=== PATIENT | female | born 1995 | race Hispanic/Latino ===

== ENCOUNTER 2017-05-20 21:18 | Emergency (ER) | payer OTHER ==
[2017-05-20 22:05] LABS: #Monocytes 0.4 thou/uL (0.11-0.59); #Neutrophils 5.6 thou/uL (1.40-6.50); %Basophils 0.3 % (0.0-1.0); %Eosinophils 0.4 % (0.0-10.0); %Monocytes 4.8 % (0.0-4.0); Hematocrit 37.7 % (36.0-47.0); Mean Platelet Volume 8.8 fL (7.4-10.4); Red Blood Cell (RBC) Count 4.28 mill/uL (4.00-5.20)
[2017-05-20 23:11] LABS: Bilirubin Negative (Negative); Blood, Urine Negative (Negative); Glucose, Urine (Dipstick) Negative (Negative); Ketone, Urine Negative (Negative); Nitrite Negative (Negative); Protein, Urine (Dipstick) Negative (Neg-Trace); Urobilinogen 0.2 mg/dL (0.2-1.0)
[2017-05-20 23:25] LABS: RBC/HPF 0-3 HPF (0-3); Squamous Epithelial 0-3 HPF (0-3); WBC/HPF 0-3 HPF (0-3)
[2017-05-20 23:26] LABS: Bacteria/HPF Rare-Few HPF (None Seen)
[2017-05-20 23:27] LABS: Hyaline Casts/LPF NONE SEEN LPF (0-3 Hyaline)
== END 2017-05-21 00:10 | disposition home or self-care (01) ==
LOC: ERS 21:18
DX: O20.0 Threatened abortion (principal); O23.41 Unspecified infection of urinary tract in pregnancy, first trimester; O10.012 Pre-existing essential hypertension complicating pregnancy, second trimester; I10 Essential (primary) hypertension; O99.341 Other mental disorders complicating pregnancy, first trimester; F41.9 Anxiety disorder, unspecified; F31.9 Bipolar disorder, unspecified; Z3A.01 Less than 8 weeks gestation of pregnancy
CPT/HCPCS: 36415; 81003; 81015; 84702; 85025; 99284

== ENCOUNTER 2018-06-24 19:23 | Emergency (ER) | payer MEDICAID, SELFPAY | END 2018-06-24 19:45 | disposition home or self-care (01) | LOC: SCSER 19:23 | DX: H72.92 Unspecified perforation of tympanic membrane, left ear (principal); H66.92 Otitis media, unspecified, left ear; F41.9 Anxiety disorder, unspecified; F31.9 Bipolar disorder, unspecified | CPT/HCPCS: 99282 ==

== ENCOUNTER 2019-01-10 19:52 | Emergency (ER) | payer SELFPAY ==
[2019-01-10 21:25] LABS: Bilirubin Small (Negative); Blood, Urine Trace (Negative); Glucose, Urine (Dipstick) Negative (Negative); Leukocyte Trace (Negative); Nitrite Negative (Negative); Protein, Urine (Dipstick) 100 mg/dL (Neg-Trace); Urobilinogen 0.2 mg/dL (Less than 2)
[2019-01-10 21:26] LABS: Clarity Hazy (Clear)
[2019-01-10 21:27] LABS: Pregnancy Test - Urine (BHCG) Negative (Negative); Pregu Control Background? CLEAR/WHITE (CLR/WHITE); Pregu Control Bar Appear? YES (CONTROL BAR); Specific Gravity 1.028 (1.002-1.036)
[2019-01-10 21:28] LABS: Bacteria/HPF None Seen HPF (None Seen); RBC/HPF 0-3 HPF (0-3)
== END 2019-01-10 23:04 | disposition home or self-care (01) ==
LOC: ERS 19:52
DX: N93.9 Abnormal uterine and vaginal bleeding, unspecified (principal); F41.9 Anxiety disorder, unspecified; F31.9 Bipolar disorder, unspecified
CPT/HCPCS: 81003; 81015; 81025; 99284

== ENCOUNTER 2019-11-24 18:19 | Emergency (ER) | payer MEDICAID, OTHER, SELFPAY | END 2019-11-24 19:51 | disposition home or self-care (01) | LOC: ERS 18:19 | DX: O9A.211 Injury, poisoning and certain other consequences of external causes complicating pregnancy, first trimester (principal); S39.91XA Unspecified injury of abdomen, initial encounter; O16.1 Unspecified maternal hypertension, first trimester; O24.419 Gestational diabetes mellitus in pregnancy, unspecified control; O99.341 Other mental disorders complicating pregnancy, first trimester; F41.9 Anxiety disorder, unspecified; F31.9 Bipolar disorder, unspecified; Z3A.11 11 weeks gestation of pregnancy; Y04.0XXA Assault by unarmed brawl or fight, initial encounter | CPT/HCPCS: 99283 ==

== ENCOUNTER 2020-02-03 08:36 | Outpatient (CLI) | payer OTHER ==
--- NOTE | 2020-02-03 11:41 | ULT ---
COMPLETE OBSTETRICAL ULTRASOUND: INDICATION: Evaluate anatomy. FINDINGS: There is a single live intrauterine gestation in breech presentation. Placenta is fundal and posteri or in location with evidence of a small intraplacental hill. The hill measured approximately 1.5 cm. SHAYY measures 15.97 cm. The left cervical length was 3.6 cm. The head, heart, stomach, kidneys, cord insertion, bladder, spine, lips and noses, extremities, and 3-vessel cord appear within normal limits. The biparietal diameter measures 5.1 cm giving an estimated gestational age of 21 weeks and 4 days. The head circumference measured 18.9 cm giving an estimated gestational age of 21 weeks and 2 days. Abdominal circumference was 16.63 cm giving an estimated gestational age of 21 weeks and 5 days. The femoral length was 3.44 cm giving an estimated gestational age of 20 weeks and 6 days. The average gestational age by ultrasound is 21 weeks and 3 days with an estimated due date of 020. The gestational age by menstrual period was 21 weeks and 5 days with an estimated due date of 08/11/2019. The estimated weight is 412 gm +/- 60 gm (15 ounces +/- 2 ounces) (24th percentile). IMPRESSION: 1. Single live intruaterine gestation with size and dates as above. 2. survey appeared within normal limits. 3. Small placental hill. POS: BH
== END 2020-02-03 08:37 | disposition home or self-care (01) ==
LOC: BICULT 08:36
PROVIDERS: ATTEND Family Medicine
DX: O09.892 Supervision of other high risk pregnancies, second trimester (principal); O36.5120 Maternal care for known or suspected placental insufficiency, second trimester, not applicable or unspecified; Z3A.21 21 weeks gestation of pregnancy
CPT/HCPCS: 76805

== ENCOUNTER 2020-04-10 13:57 | Day surgery (SDC) | payer OTHER ==
[2020-04-10 14:56] VITALS: BP 109/66; TEMP 98.2; BMI 32.1
--- NOTE | 2020-04-10 15:23 | PDOC.LDHP ---
Labor and Delivery H&P Chief complaint: contractions (back pain) HPI: 24 y/o at 31w2d, patient of Dr. Sweeney, presents with back pain. Patient reports she felt like she was having ctx but those have resolved. Now she only complaints of intermittent back pain. Pain is crampy, comes and goes, rates it 7/10, improved for a short time with Tylenol, last dose this morning. Denies VB, LOF, or other concerns. +FM ROS neg for HEENT, CV, pulm, GI, , neuro, psych, skin, musculoskeletal, or constitutional symptoms other than mentioned above. OB History Details: 2 prior term , preeclampsia with first Current complications: none Past Medical History: None Current medications: pre- vitamins, other (ASA 81mg) Previous surgical history: cholecystectomy Allergies/Adverse Reactions: Allergies Allergy/AdvReac Type Severity Reaction Status Date / Time No Known Allergies Allergy Verified 04/10/20 15:09 Social history: none - Physical Exam Vital signs reviewed and normal: yes General: NAD, resting Lungs: nonlabored breathing Abdomen: gravid Extremeties: no edema FHT: category 1 (135, mod variability, + accels, no decels) [place] contractions every: None - Vaginal Exam cm dilated: 0 Effacement: 0% Station: -3 - Assessment 24 y/o at 31w2d with musculoskeletal discomforts of . No e/o PTL. No ctx on monitoring, SVE 0/0/-3. status reassuring with reactive NST. - Plan -: D/c home with precautions. Advised to keep all appointments. Comfort measures discussed.
[2020-04-11] MEDS ORDERED: FLU VACC QS2020-21(6MOS UP)/PF 60 MCG/0.5 ML SYRINGE IM ONE (09:00)
== END 2020-04-10 15:55 | disposition home health service (06) ==
LOC: L&D/OP 13:57
PROVIDERS: ATTEND Family Medicine
DX: O26.893 Other specified pregnancy related conditions, third trimester (principal); M54.9 Dorsalgia, unspecified; O47.03 False labor before 37 completed weeks of gestation, third trimester; Z3A.31 31 weeks gestation of pregnancy; Z79.82 Long term (current) use of aspirin

== ENCOUNTER 2020-05-05 10:28 | Day surgery (SDC) | payer OTHER ==
[2020-05-05 11:09] VITALS: BMI 32.3
--- NOTE | 2020-05-05 11:31 | PDOC.LDHP ---
Labor and Delivery H&P Chief complaint: other (vaginal bleeding/spotting) HPI: 24 yo presents complaining of vaginal bleeding. Pt states she feels like she lost her mucus plug early yesterday morning. After this she went to the bathroom and upon wiping noticed pink on the tissue. She put on a pad and from yesterday morning through this morning has noticed a few additional episodes of very light spotting. Denies any change in her vaginal discharge, any vaginal burning/irritation, dysuria, abodminal pain, LOF, recent illness. +FM. Denies any recent intercourse. Pt states she has had contractions intermittently over the last week but never noticed them lasting more than an hour. Current gestational age (weeks): 34 (6) Due date: 06/10/20 Dating criteria: first trimester ultrasound Grav: 3 Para: 2 OB History Details: 2 previous . Pre-eclampsia and gestational DM in first with induction at 37 wks. Current complications: other (anemia of ) Abnormal US findings: No Past Medical History: None Current medications: pre- vitamins, iron Previous surgical history: cholecystectomy Allergies/Adverse Reactions: Allergies Allergy/AdvReac Type Severity Reaction Status Date / Time No Known Allergies Allergy Verified 05/05/20 11:10 Social history: none - Physical Exam Vital signs reviewed and normal: yes General: NAD, resting Heart: RRR Lungs: nonlabored breathing Abdomen: NTTP Extremeties: no edema FHT: category 1, variability present [place] contractions every: 1 in 30 minutes - Vaginal Exam cm dilated: 0 Effacement: 0% Station: -3 - OB Labs Blood type: A RH: positive Antibody Screen: negative HIV: negative RPR: negative HEPSAg: negative 1 hour GCT: negative (119) Rubella: immune - Assessment 3rd Trimester IUP w/ vaginal spotting - Plan -: -Speculum exam without any signs of bleeding -SVE: closed/thick/high -[place] showing 1 cxn over course of 30 minutes that was non-painful -Reactive, Cat 1 strip Plan: No signs of infection or pre-term labor. Reassuring status on monitor. Pt has follow up with Dr. Sweeney next week. Will DC with precautions and routine f/u in a few days.
[2020-05-05] MEDS ORDERED: hydrALAZINE 20 MG/ML VIAL SLOW IVP PRN (11:32)
== END 2020-05-05 12:02 | disposition home health service (06) ==
LOC: L&D/OP 10:28
PROVIDERS: ATTEND Family Medicine
DX: O46.93 Antepartum hemorrhage, unspecified, third trimester (principal); O99.013 Anemia complicating pregnancy, third trimester; D64.9 Anemia, unspecified; Z3A.34 34 weeks gestation of pregnancy

== ENCOUNTER 2020-05-27 08:46 | Day surgery (SDC) | payer OTHER ==
[2020-05-27] MEDS ORDERED: hydrALAZINE 20 MG/ML VIAL SLOW IVP PRN (09:28)
--- NOTE | 2020-05-27 09:29 | PDOC.LDHP ---
Labor and Delivery H&P Chief complaint: loss of fluid HPI: 24yo @ 38.0wk by 12.2wk fely presents for loss of fluid. States had intercourse last night, awoke this morning and was getting ready to go for a walk when she noticed her underwear was wet, changed clothes and no LOF since. She called the clinic who recommended her be seen in L&D. She endorses good movement, no VB, change in VD, dysuria, fever/chills, CP, SOB. No Ctx. Has an induction scheduled for 06/04. Current gestational age (weeks): 38 Due date: 06/10/20 Dating criteria: first trimester ultrasound Grav: 3 Para: 2 OB History Details: PIH and gDM in first Current complications: none Past Medical History: denies Current medications: pre- vitamins, iron, other (ASA) Previous surgical history: cholecystectomy Allergies/Adverse Reactions: Allergies Allergy/AdvReac Type Severity Reaction Status Date / Time No Known Allergies Allergy Verified 05/05/20 11:10 Social history: none - Physical Exam Vital signs reviewed and normal: yes General: NAD, resting Heart: RRR Lungs: CTAB Abdomen: gravid Extremeties: no edema FHT: category 1 (accels, no deccels, moderate variability) [place] contractions every: none - Vaginal Exam cm dilated: 0 Effacement: 0% Station: -3 - OB Labs Blood type: A RH: positive Antibody Screen: negative HIV: negative RPR: negative HEPSAg: negative Rubella: immune Additional Labs: GC/C negative - Plan -: 24yo @ 38.0wk by 12.2wk fely presents for loss of fluid. #Term SIUP, r/o labor and SROM - Concern for SROM @ approx 8am this AM, no LOF since - Spec exam with no pooling of fluid or LOF with valsalva - Amnisure negative - SVE 0/th/high - Cat 1 FHT with no ctx PCP: Patel Castanedao: Negative for SROM. Not in labor. Discussed findings with patient and safe for discharge home. Given return labor precautions. Patient voiced understanding and agreement, all questions answered. Patient has induction schd for 06/04. Above plan discussed with Dr. Mercado who agreed with plan and documentation. Addendum - Attending - Attending Attestation Date/Time: 05/28/20 1780 I personally evaluated the patient and discussed the management with Dr. Gupta I agree with the History, Examination, Assessment and Plan documented above with any addition or exceptions noted below.
[2020-05-27 09:33] VITALS: BMI 35.9
[2020-05-27 09:46] LABS: Amnisure Test No Membranes Rupture (No Rupture)
[2020-05-27 09:47] LABS: Amnisure Internal Control QC ACCEPTABLE (ACCEPTABLE)
[2020-05-28] MEDS ORDERED: FLU VACC QS2020-21(6MOS UP)/PF 60 MCG/0.5 ML SYRINGE IM ONE (09:00)
== END 2020-05-27 10:12 | disposition home or self-care (01) ==
LOC: L&D/OP 08:46
PROVIDERS: ATTEND Family Medicine
DX: O99.891 Other specified diseases and conditions complicating pregnancy (principal); N89.8 Other specified noninflammatory disorders of vagina; Z3A.38 38 weeks gestation of pregnancy
CPT/HCPCS: 84112; 99283

== ENCOUNTER 2020-05-30 10:08 | Outpatient (CLI) | payer OTHER ==
[2020-05-30 22:14] LABS: SARS-CoV-2 MS2 Positive; SARS-CoV-2 N Gene Negative; SARS-CoV-2 S Gene Negative; SARS-CoV-2 by NAA Not Detected (NotDetected); SARS-CoV-2 orf1ab Negative
== END 2020-05-30 10:09 | disposition home or self-care (01) ==
LOC: LABBT 10:08
PROVIDERS: ATTEND Family Medicine
DX: Z01.812 Encounter for preprocedural laboratory examination (principal); Z20.828 Contact with and (suspected) exposure to other viral communicable diseases
CPT/HCPCS: 87635; U0003

== ENCOUNTER 2020-06-04 19:15 | Inpatient (IN) | payer OTHER ==
[~2020-06-04 19:15] MED LIST: Carboprost 250 MCG/ML AMP IM PRN; Diphenoxylate HCl/Atropine Tablet PO PRN; HYDROcodone/Acetaminophen 5/325 mg Tablet PO PRN; Ibuprofen 800 MG TAB PO PRN; Lidocaine 1% (PF) 30 ML VIAL SC PRN; Methylergonovine 0.2 MG/ML VIAL IM PRN; Misoprostol 200 MCG TAB PR PRN; NS / Oxytocin 40 units/1000ml 1,000 ML IV PRN; NS w/ Oxytocin 10 units 500 ML IV SCH; Ondansetron PF 4 MG/2 ML Vial IVP PRN; Penicillin G Potassium 5 MILL.UNITS in Sodium Chloride 0.9% 100 ML IVPB SCH; Promethazine HCl 25 MG/ML VIAL IM PRN; hydrALAZINE 20 MG/ML VIAL SLOW IVP PRN
[2020-06-04] MEDS: Lactated Ringer's 1,000 ML IV SCH (19:50)
[2020-06-04 20:06] VITALS: BMI 36.8
[2020-06-04 20:10] LABS: Hemoglobin 12.3 g/dL (12.0-16.0); Mean Corpuscular HGB CONC 34.5 g/dL (32.0-36.0); Mean Corpuscular Hemoglobin 30.4 pg (27.0-31.0); Mean Corpuscular Volume 88.1 fL (78.0-98.0); Mean Platelet Volume 10.6 fL (7.4-10.4); Platelet Count 182 thou/uL (130-400); RBC Distribution Width 13.4 % (11.5-14.5); Red Blood Cell (RBC) Count 4.05 mill/uL (4.20-5.40); White Blood Cell (WBC) Count 10.3 thou/uL (4.8-10.8)
[2020-06-04] MEDS: Misoprostol 100 MCG TAB VAG SCH (20:15)
[2020-06-04 20:44] LABS: Syphilis Antibody Nonreactive (Nonreactive); Syphilis Antibody Index 0.04 S/CO (<1.00 Non-Reactive)
[2020-06-04] MEDS: Penicillin G 2.5 MILL.units 2.5 MILL.UNITS in Premix Bag 1 BAG IVPB SCH (20:48)
[2020-06-04 22:20] LABS: HBSAg Index 0.14 S/CO (0-0.99); Hep B Surf Ag Non-Reactive S/CO (NonReactive)
[2020-06-05] MEDS: Penicillin G 2.5 MILL.units 2.5 MILL.UNITS in Premix Bag 1 BAG IVPB SCH ×2 (00:01→05:42)
[2020-06-05] MEDS: Butorphanol Tartrate 1 MG/ML VIAL SLOW IVP PRN ×2 (00:15→02:15)
[2020-06-05] MEDS: Misoprostol 100 MCG TAB VAG SCH ×2 (00:17→05:42)
[2020-06-05] MEDS ORDERED: DISCONTINUE ALL PREVIOUS NARCOTICS FS SCH (02:30)
[2020-06-05] MEDS ORDERED: Bupivacaine 0.5% 20 ML, fentaNYL Citrate/PF 400 MCG in Sodium Chloride 0.9% 72 ML EPIDURAL SCH (02:30)
--- NOTE | 2020-06-05 03:18 | DN ---
DATE OF PROCEDURE: 06/05/2020 PRIMARY OB: Dr. Tenzin Sweeney. The patient delivered a male at 39 weeks and 2 days on 06/05/2020 at 0238 hours by an uncomplicated term spontaneous vaginal delivery. Apgars were 8 and 9. Weight unavailable at time of dictation. Placenta delivered spontaneously, followed by Pitocin infusion. There were no lacerations. Quantitative blood loss 215 mL. Delivering physician is Dr. Mercado. COUNTS: Correct. COMPLICATIONS: None. Mother and baby are stable in the room in the immediate period. Job ID: [id number]
[2020-06-05] MEDS: Lactated Ringer's 1,000 ML IV SCH (03:29)
[2020-06-05] MEDS ORDERED: NS / Oxytocin 40 units/1000ml 1,000 ML IV SCH (05:04)
[2020-06-05] MEDS ORDERED: Benzocaine-Menthol 82.5 ML CAN TOP PRN (05:04)
[2020-06-05] MEDS ORDERED: Milk Of Magnesia 30 ML UDCUP PO PRN (05:04)
[2020-06-05] MEDS ORDERED: Bisacodyl 10 MG SUPP PR PRN (05:04)
[2020-06-05] MEDS ORDERED: Lanolin Ointment 7 GM TUBE TOP PRN (05:04)
[2020-06-05] MEDS ORDERED: hydrALAZINE 20 MG/ML VIAL SLOW IVP PRN (05:04)
[2020-06-05] MEDS ORDERED: Ondansetron PF 4 MG/2 ML Vial IVP PRN (05:04)
[2020-06-05] MEDS: Ibuprofen 800 MG TAB PO SCH ×3 (05:20→22:18)
[2020-06-05] MEDS: Ferrous Sulfate 325 MG TAB PO SCH ×2 (08:54→17:10)
[2020-06-05] MEDS ORDERED: Adacel (T-DAP) 0.5 ML SYRINGE IM ONE (09:00)
[2020-06-05] MEDS: Docusate Calcium (SURFAK) 240 MG CAP PO SCH ×2 (09:29→22:18)
[2020-06-05] MEDS: Prenatal Vitamin 1 TAB PO SCH (09:29)
[2020-06-05] MEDS: HYDROcodone/Acetaminophen 5/325 mg Tablet PO PRN ×2 (11:31→16:38)
[2020-06-06] MEDS: Ibuprofen 800 MG TAB PO SCH ×3 (07:16→13:22)
[2020-06-06 07:27] LABS: #Eosinphils 0.1 thou/uL (0.0-0.7); #Lymphocytes 2.5 thou/uL (1.20-3.40); #Monocytes 0.5 thou/uL (0.11-0.59); %Basophils 0.1 % (0.0-1.0); %Eosinophils 0.6 % (0.0-10.0); %Lymphocytes 27.5 % (21.0-51.0); %Monocytes 5.9 % (0.0-10.0); Hemoglobin 11.3 g/dL (12.0-16.0); Mean Corpuscular HGB CONC 33.9 g/dL (32.0-36.0); Mean Corpuscular Hemoglobin 30.6 pg (27.0-31.0); Mean Corpuscular Volume 90.4 fL (78.0-98.0); Platelet Count 130 thou/uL (130-400); RBC Distribution Width 13.3 % (11.5-14.5); Red Blood Cell (RBC) Count 3.68 mill/uL (4.20-5.40); White Blood Cell (WBC) Count 9.1 thou/uL (4.8-10.8)
[2020-06-06] MEDS: Ferrous Sulfate 325 MG TAB PO SCH ×2 (07:54→16:47)
[2020-06-06] MEDS: Prenatal Vitamin 1 TAB PO SCH (08:00)
[2020-06-06] MEDS: Docusate Calcium (SURFAK) 240 MG CAP PO SCH (08:00)
[2020-06-06 08:10] VITALS: BP 116/80; TEMP 98.5
[2020-06-06] MEDS: HYDROcodone/Acetaminophen 5/325 mg Tablet PO PRN (14:13)
== END 2020-06-06 18:40 | disposition home or self-care (01) | DRG 807 ==
LOC: L&D 19:15 → 3SW 06-05 05:29
PROVIDERS: ADMIT Family Medicine; ATTEND Family Medicine
PROC: 10E0XZZ Delivery of Products of Conception, External Approach (ICD-10-PCS; principal; 2020-06-05)
DX: O62.3 Precipitate labor (principal); Z37.0 Single live birth; Z3A.39 39 weeks gestation of pregnancy; Z20.828 Contact with and (suspected) exposure to other viral communicable diseases
CPT/HCPCS: 36415; 85025; 85027; 86780; 86850; 86900; 86901; 87340; J0595; J2405; J3010; J3490

== ENCOUNTER 2021-11-27 12:47 | Emergency (ER) | payer OTHER ==
[2021-11-27] MEDS ORDERED: Dexameth. Sod Phosp. 10 MG/ML (CHEMO USE ONLY) ONE (13:15)
[2021-11-27] MEDS ORDERED: Ketorolac Tromethamine 30 MG/ML VIAL ONE (13:15)
== END 2021-11-27 13:40 | disposition home or self-care (01) ==
LOC: ERS 12:47
DX: J03.80 Acute tonsillitis due to other specified organisms (principal); B96.89 Other specified bacterial agents as the cause of diseases classified elsewhere
CPT/HCPCS: 96372; 99283; J1100; J1885

== ENCOUNTER 2022-02-25 07:43 | Outpatient (CLI) | payer OTHER | END 2022-02-25 07:44 | disposition home or self-care (01) | LOC: BICULT 07:43 | PROVIDERS: ATTEND Nurse Practitioner Women's Health | DX: T83.32XA Displacement of intrauterine contraceptive device, initial encounter (principal) | CPT/HCPCS: 76856 ==

== ENCOUNTER 2022-06-30 23:04 | Emergency (ER) | payer OTHER ==
[2022-07-01] MEDS ORDERED: Acetaminophen 500 MG TAB ONE (00:04)
[2022-07-01 00:06] LABS: SARS-CoV-2 NAA Rapid Test Not Detected (NotDetected)
[2022-07-01] MEDS ORDERED: Dexamethasone 4 MG TAB ONE (01:28)
== END 2022-07-01 01:49 | disposition home or self-care (01) ==
LOC: ERS 23:04
DX: J02.9 Acute pharyngitis, unspecified (principal); J06.9 Acute upper respiratory infection, unspecified; Z20.822 Contact with and (suspected) exposure to COVID-19
CPT/HCPCS: 71045; 87081; 87430; J8540

== ENCOUNTER 2022-09-15 17:58 | Emergency (ER) | payer OTHER ==
[2022-09-15] MEDS ORDERED: Metoclopramide HCl 10 MG TAB ONE (18:24)
[2022-09-15 18:46] LABS: Bilirubin Negative (Negative); Blood, Urine Negative (Negative); Clarity Clear (Clear); Glucose, Urine (Dipstick) Normal (Negative); Ketone, Urine Negative (Negative); Leukocyte Negative Leu/uL (Negative); Nitrite Negative (Negative); Protein, Urine (Dipstick) Negative (Neg-Trace); Specific Gravity, Urine 1.008 (1.002-1.036); Urobilinogen Normal mg/dL (Less than 2); pH, Urine 6.5 (5.0-9.0)
== END 2022-09-15 19:50 | disposition home or self-care (01) ==
LOC: ERS 17:58
DX: R51.9 Headache, unspecified (principal)
CPT/HCPCS: 81003; 99284

== ENCOUNTER 2023-06-15 10:55 | Emergency (ER) | payer OTHER, SELFPAY ==
[2023-06-15 14:41] LABS: SARS-CoV-2 NAA Rapid Test Not Detected (NotDetected)
[2023-06-15 15:26] LABS: MONO NEGATIVE CONTROL ZONE White (Negative) (White); MONO POSITIVE CONTROL Pink Line (Positive) (PINK/RED); Mononucleosis NEGATIVE (NEGATIVE)
== END 2023-06-15 15:02 | disposition home or self-care (01) ==
LOC: ERS 10:55
DX: J02.9 Acute pharyngitis, unspecified (principal); I10 Essential (primary) hypertension; Z20.822 Contact with and (suspected) exposure to COVID-19
CPT/HCPCS: 36415; 86308; 87081; 87430; 99283

== ENCOUNTER 2024-05-12 19:08 | Emergency (ER) | payer SELFPAY ==
[2024-05-12] MEDS ORDERED: Acetaminophen 325 MG TAB ONE (20:05)
== END 2024-05-12 20:12 | disposition home or self-care (01) ==
LOC: ERS 19:08
DX: B34.9 Viral infection, unspecified (principal)
CPT/HCPCS: 87081; 87428; 87430; 99283

== ENCOUNTER 2024-05-13 08:04 | Emergency (ER) | payer OTHER, SELFPAY ==
[2024-05-13 08:29] LABS: Actual Bicarbonate (HCO3v) 22.4 mEq/L (22-28); Analyzer IN Cardio ER; Base Excess 1.9 mEq/L (-2.0 to +3.0); Calcium, Ionized (venous) 1.09 mmol/L (1.16-1.32); Chloride (VBG) 101 mmol/L (98-106); Hematocrit-VBG 43 % (36.0-47.0); Hemoglobin (Hb) 14.7 g/dL (11.7-15.5); Potassium (VBG) 3.52 mmol/L (3.70-5.30); Sodium 137 mmol/L (133-146); pH (venous) 7.565 (7.32-7.43)
[2024-05-13 08:36] LABS: #Basophils Less than 0.03 10x3/uL (0.0-0.2); #Eosinophils Less than 0.03 10x3/uL (0.0-0.7); %Basophils 0.1 % (0.0-1.0); %Lymphocytes 6.8 % (21.0-51.0); %Monocytes 5.1 % (0.0-10.0); %Neutrophils 87.6 % (42.0-75.0); Hematocrit 40.4 % (36.0-47.0); Hemoglobin 14.4 g/dL (12.0-16.0); Mean Corpuscular HGB CONC 35.6 g/dL (32.0-36.0); Mean Corpuscular Hemoglobin 29.8 pg (27.0-31.0); Mean Corpuscular Volume 83.6 fL (78.0-98.0); Mean Platelet Volume 10.8 fL (7.4-10.4); Platelet Count 228 10x3/uL (130-400); RBC Distribution Width 13.1 % (11.5-14.5); Red Blood Cell (RBC) Count 4.83 mill/uL (4.20-5.40)
[2024-05-13] MEDS ORDERED: hydrOXYzine 25 MG TAB ONE (08:56)
[2024-05-13] MEDS ORDERED: Ketorolac Tromethamine 30 MG (1 mL) VIAL ONE (08:56)
[2024-05-13] MEDS ORDERED: Ondansetron PF 4 MG/2 ML Vial ONE (08:56)
[2024-05-13 09:00] LABS: BHCG - Serum Negative (NEGATIVE); Pregs Control Background? CLEAR/WHITE (CLR/WHITE); Pregs Control Bar Appear? YES (CONTROL BAR)
[2024-05-13 09:08] LABS: ALT (SGPT) 23 U/L (8-55); AST (SGOT) 21 U/L (5-34); Albumin 4.2 g/dL (3.5-5.0); Alkaline Phosphatase 71 U/L (40-110); Anion Gap 14 mmol/L (10-20); BUN (Urea Nitrogen) 5 mg/dL (7.0-18.7); Bilirubin, Total 2.9 mg/dL (0.2-1.2); Calc. Creatinine Clearance 0 mL/min (70-130); Calcium 9.4 mg/dL (7.8-10.44); Carbon Dioxide 19 mmol/L (22-29); Chloride 104 mmol/L (98-107); Estimated GFR 95; Globulin 4.1 g/dL (2.4-3.5); Glucose 96 mg/dL (70-105); Potassium 3.3 mmol/L (3.5-5.1); Protein, Total 8.3 g/dL (6.0-8.3); Sodium 134 mmol/L (136-145)
[2024-05-13 09:32] LABS: Bacteria/HPF 1+ HPF (None Seen); Bilirubin Negative (Negative); Blood, Urine Negative (Negative); CAUTI Indications for Culture Dysuria,urgency,freq; Clarity Turbid (Clear); Glucose, Urine (Dipstick) Normal (Negative); Ketone, Urine 10 mg/dL (Negative); Leukocyte 75 Leu/uL (Negative); Nitrite Negative (Negative); Protein, Urine (Dipstick) 70 mg/dL (Neg-Trace); RBC/HPF 0-3 HPF (0-3); Specific Gravity, Urine 1.023 (1.002-1.036); Urobilinogen 3 mg/dL (Less than 2); pH, Urine 8.5 (5.0-9.0)
[2024-05-13 09:33] LABS: Urine Culture Reflex No No
[2024-05-13] MEDS ORDERED: Dexamethasone 10 MG/ML VIAL ONE (11:22)
[2024-05-13] MEDS ORDERED: Clindamycin/D5W 900 MG in Premix 1 BAG IVPB SCH (11:30)
[2024-05-13] MEDS ORDERED: Acetaminophen 500 MG TAB ONE (12:41)
[2024-05-13] MEDS ORDERED: Iopamidol-370 76% 500 ML MDV (1 ML CHARGE) ONE (14:45)
== END 2024-05-13 15:05 | disposition home or self-care (01) ==
LOC: ERS 08:04
DX: J03.90 Acute tonsillitis, unspecified (principal)
CPT/HCPCS: 70491; 71045; 80053; 81001; 82805; 84703; 85025; 87040; 87086; 93005; 94760; 96361; 96365; 96375; J1100; J1885; J2405; J3490; Q9967

== ENCOUNTER 2024-07-19 15:26 | Emergency (ER) | payer SELFPAY | END 2024-07-19 18:23 | disposition left against medical advice (07) | LOC: ERS 15:26 | DX: R06.02 Shortness of breath (principal); R00.0 Tachycardia, unspecified | CPT/HCPCS: 87081; 87428; 87430; 99283 ==

== ENCOUNTER 2024-07-20 08:28 | Emergency (ER) | payer SELFPAY ==
[2024-07-20] MEDS ORDERED: Acetaminophen 500 MG TAB ONE (08:55)
[2024-07-20] MEDS ORDERED: Ketorolac Tromethamine 30 MG (1 mL) VIAL ONE ×2 (08:55→08:57)
[2024-07-20] MEDS ORDERED: Dexamethasone 10 MG/ML VIAL ONE (08:56)
[2024-07-20 09:08] LABS: #Basophils Less than 0.03 10x3/uL (0.0-0.2); #Eosinophils Less than 0.03 10x3/uL (0.0-0.7); %Basophils 0.2 % (0.0-1.0); %Lymphocytes 4.7 % (21.0-51.0); %Monocytes 5.5 % (0.0-10.0); %Neutrophils 89.3 % (42.0-75.0); Hematocrit 39.4 % (36.0-47.0); Hemoglobin 13.3 g/dL (12.0-16.0); Mean Corpuscular HGB CONC 33.8 g/dL (32.0-36.0); Mean Corpuscular Hemoglobin 29.4 pg (27.0-31.0); Mean Corpuscular Volume 87.2 fL (78.0-98.0); Mean Platelet Volume 10.9 fL (7.4-10.4); Platelet Count 165 10x3/uL (130-400); Red Blood Cell (RBC) Count 4.52 mill/uL (4.20-5.40)
[2024-07-20 09:22] LABS: BHCG - Serum Negative (NEGATIVE); Pregs Control Background? CLEAR/WHITE (CLR/WHITE); Pregs Control Bar Appear? YES (CONTROL BAR)
[2024-07-20] MEDS ORDERED: Iopamidol-370 76% 500 ML MDV (1 ML CHARGE) ONE (09:25)
[2024-07-20 09:26] LABS: ALT (SGPT) 17 U/L (8-55); AST (SGOT) 15 U/L (5-34); Albumin 3.8 g/dL (3.5-5.0); Alkaline Phosphatase 64 U/L (40-110); Anion Gap 13 mmol/L (10-20); BUN (Urea Nitrogen) 6 mg/dL (7.0-18.7); Bilirubin, Total 2.4 mg/dL (0.2-1.2); Calc. Creatinine Clearance 0 mL/min (70-130); Calcium 8.9 mg/dL (7.8-10.44); Carbon Dioxide 18 mmol/L (22-29); Chloride 106 mmol/L (98-107); Estimated GFR 126; Globulin 3.9 g/dL (2.4-3.5); Glucose 94 mg/dL (70-105); Potassium 3.4 mmol/L (3.5-5.1); Protein, Total 7.7 g/dL (6.0-8.3); Sodium 134 mmol/L (136-145)
[2024-07-20 09:40] LABS: Bilirubin Negative (Negative); Blood, Urine Negative (Negative); CAUTI Indications for Culture Fever or rigors; Glucose, Urine (Dipstick) Normal (Negative); Ketone, Urine Trace mg/dL (Negative); Leukocyte 75 Leu/uL (Negative); Nitrite Negative (Negative); Protein, Urine (Dipstick) 30 mg/dL (Neg-Trace); RBC/HPF 0-3 HPF (0-3); Specific Gravity, Urine 1.029 (1.002-1.036); Urobilinogen Normal mg/dL (Less than 2); pH, Urine 8.5 (5.0-9.0)
[2024-07-20 09:43] LABS: Actual Bicarbonate (HCO3v) 21.7 mEq/L (22-28); Analyzer IN Cardio ER; Base Excess -0.5 mEq/L (-2.0 to +3.0); Calcium, Ionized (venous) 1.12 mmol/L (1.16-1.32); Chloride (VBG) 102 mmol/L (98-106); Hematocrit-VBG 43 % (36.0-47.0); Hemoglobin (Hb) 14.5 g/dL (11.7-15.5); Potassium (VBG) 3.41 mmol/L (3.70-5.30); Sodium 138 mmol/L (133-146); pH (venous) 7.488 (7.32-7.43)
[2024-07-20 09:57] LABS: Bacteria/HPF 1+ HPF (None Seen); Clarity Hazy (Clear); Yeast-Budding 1+ HPF (None Seen)
[2024-07-20 09:58] LABS: Urine Culture Reflex Yes Yes
== END 2024-07-20 12:10 | disposition home or self-care (01) ==
LOC: ERS 08:28
DX: J03.90 Acute tonsillitis, unspecified (principal)
CPT/HCPCS: 36415; 70491; 71045; 71275; 80053; 81001; 82805; 83605; 84703; 85025; 87040; 87086; 94760; 96374; 96375; J1100; J1885; Q9967